=== PATIENT | female | born 1935 ===

== ENCOUNTER 2021-09-09 08:43 | Outpatient (CLI) | payer OTHER | END 2021-09-09 12:01 | disposition home or self-care (01) | LOC: SONOGRAMA 08:43 | PROVIDERS: ATTEND Pathology Anatomic Pathology & Clinical Pathology | DX: E04.1 Nontoxic single thyroid nodule (principal) ==

== ENCOUNTER 2023-02-16 11:10 | Outpatient (CLI) | payer OTHER | END 2023-02-16 11:13 | disposition home or self-care (01) | LOC: NUCLEAR 11:10 | PROVIDERS: ATTEND Orthopaedic Surgery | DX: I73.89 Other specified peripheral vascular diseases (principal) ==

== ENCOUNTER 2023-02-17 08:26 | Outpatient (CLI) | payer OTHER | END 2023-02-17 08:28 | disposition home or self-care (01) | LOC: NUCLEAR 08:26 | PROVIDERS: ATTEND Orthopaedic Surgery | DX: I87.2 Venous insufficiency (chronic) (peripheral) (principal) ==